=== PATIENT | male | born 1960 | race Caucasian/White ===

== ENCOUNTER → 2017-04-28 | Outpatient (CLI) | payer BC ==
--- NOTE | 2017-04-29 09:26 | PN ---
DATE OF SERVICE: 04/28/2017 A 56-year-old gentleman who [facility] of obstructive sleep apnea-hypopnea syndrome. Last titration done in 2012. At that time, recommended CPAP pressure was 9 cm of water. Previously I saw patient one year ago. He continued to use his machine every night without significant problem related to the machine. Sometimes he has discomfort with his nasal mask. At the same time, patient continued to have quite significant sleepiness during the day. [place] sleepiness sale is 16. He may take several naps during the day. Sometimes he is seeing dreams during the naps and sometimes he is seeing vivid dreams at night. I checked his CPAP unit. It showed usage of the machine with average amount of usage is 22 out of 30 nights for more than 4 hours which is acceptable compliance. No significant leak. Apnea-hypopnea index only 0.9 for the last month. MEDICATIONS: Flonase, Ziac, lisinopril, Niacin. During physical exam, patient in no distress. BP 112/67, HR 62, RR 16, height 6,0, weight 240, BMI 32.5, neck 16-3/4 inches in circumference, temperature 97.7, oxygen saturation at room air 95%. OROPHARYNX: Very small oropharyngeal air space. ABDOMEN: Slightly obese. NECK: Supple, No JVD. Thyroid is not palpable. LUNGS: Clear to percussion and to auscultation. Good air exchange. No wheezing or rhonchi. HEART: S1, s2 regular. No murmurs, gallops or rubs. EXTREMITIES: No clubbing or cyanosis. IMPRESSION: 1. Obstructive sleep apnea-hypopnea syndrome. Patient continues to use CPAP equipment in acceptable range. Normal apnea-hypopnea index by reading from the machine. 2. At the same time, patient continued to have symptoms of excessive daytime sleepiness with vivid dreams during the night and dreams during naps in the daytime. [place] sleepiness scale significantly increased to 16. Differential diagnosis includes additional diagnosis of hypersomnia and narcolepsy. 3. Obesity. 4. Hypertension. 5. Status post nasal surgery. 6. Status post hernia repair. PLAN: 1. Continue treatment with CPAP with the pressure of 9 cm of water every night for the whole night. 2. Multiple sleep latency test for objective evaluation of patient's symptoms of excessive daytime sleepiness. Test should be done after the night with CPAP therapy. 3. Continue losing weight. Patient lost about 30 pounds since titration. 4. No driving if feeling any sleepiness. Thank you very much for allowing me to participate in the management of your patient. Sincerely, David Hannon MD, PhD, FAASM. Diplomat of [employer] [employer], Sleep Medicine Board by [place] [employer] [employer] Compliance Manager of [facility] [place] [facility] SHOREClementine
== END | disposition home or self-care (01) ==
LOC: SLEEP 14:44
PROVIDERS: ATTEND Internal Medicine
DX: G47.33 Obstructive sleep apnea (adult) (pediatric) (principal); E66.9 Obesity, unspecified; I10 Essential (primary) hypertension

== ENCOUNTER 2025-03-28 07:31 | Day surgery (SDC) | payer BC, OTHER ==
[2025-03-27 12:47] VITALS: BMI 32.5
[~2025-03-28 07:31] MED LIST: LIDOCAINE 1% (10MG/ML) FOR IV START INTRADERMA PRN
--- NOTE | 2025-03-28 07:35 | P.GSHP ---
History of Present Illness H&P Date: 03/28/25 CHIEF COMPLAINT: Dysphagia and colon screen HISTORY OF PRESENT ILLNESS: The patient is a 64-year-old male who presents with dysphagia, gastroesophageal reflux disease and need for colon screen. Upper and lower endoscopy were offered for further evaluation and management. PAST MEDICAL HISTORY: Please see list. PAST SURGICAL HISTORY: Please see list. MEDICATIONS: Please see list. ALLERGIES: Please see list. SOCIAL HISTORY: No illicit drug use FAMILY HISTORY: No reports of Crohn disease or ulcerative colitis. REVIEW OF ORGAN SYSTEMS: CONSTITUTIONAL: No reports of fevers or chills. GI: Denies any blood in stools or constipation. PHYSICAL EXAM: VITAL SIGNS: Stable GENERAL: Well-developed pleasant in no acute distress. HEENT: No scleral icterus. Extraocular movements grossly intact. Moist buccal mucosa. NECK: Supple without lymphadenopathy. CHEST: Unlabored respirations. Equal bilateral excursions. CARDIOVASCULAR: Regular rate and rhythm. Distal 2+ pulses. ABDOMEN: Soft, nondistended. MUSCULOSKELETAL: No clubbing, cyanosis, or edema. ASSESSMENT: 1. Dysphagia and gastroesophageal reflux disease 2. Colon screen. PLAN: 1. Recommend proceeding with an upper and lower endoscopy Past Medical History Past Medical History: Diabetes Mellitus, GERD/Reflux, Hypertension, Sleep Apnea/CPAP/BIPAP Additional Past Medical History / Comment(s): "Borderline diabetes"-per pt. . Arthritis. Use CPAP. History of Any Multi-Drug Resistant Organisms: None Reported Past Surgical History: Hernia Repair, Orthopedic Surgery Additional Past Surgical History / Comment(s): Lt shoulder rotator cuff repair. Rt bunionectomy. Fx femer lt- has julio. Colonoscopy Past Anesthesia/Blood Transfusion Reactions: Unable to Obtain, Previous Problems w/ Anesthesia Additional Past Anesthesia/Blood Transfusion Reaction / Comment(s): Per pt, "I was told by family it took a long time to come out of it." Smoking Status: Never smoker - Past Family History Father Family Medical History: No Reported History Medications and Allergies Home Medications Medication Instructions Recorded Confirmed Type Aspirin EC [Ecotrin Low Dose] 81 mg PO DAILY 03/27/25 03/27/25 History Bisoprolol-Hctz 2.5-6.25 mg [Ziac 1 tab PO DAILY 03/27/25 03/27/25 History 2.5-6.25 MG] Fish Oil (Unknown Dose) 1 dose PO QAM 03/27/25 03/27/25 History Tirzepatide [Mounjaro] 5 mg SQ MO 03/27/25 03/27/25 History lisinopriL [Zestril] 5 mg PO DAILY 03/27/25 03/27/25 History Allergies Allergy/AdvReac Type Severity Reaction Status Date / Time sulfamethoxazole Allergy Nausea Verified 03/27/25 12:28 [From Bactrim] trimethoprim [From Bactrim] Allergy Nausea Verified 03/27/25 12:28
[2025-03-28 08:07] VITALS: RESP 16; TEMP 97.4
[2025-03-28] MEDS: IV FLUID CONTINUATION 1,000 ML IV ONE (08:24)
[2025-03-28] MEDS: LACTATED RINGERS 1,000 ML IV SCH (08:25)
[2025-03-28] MEDS: ONDANSETRON 4 MG/2 ML VIAL IVP STA (08:26)
[2025-03-28] MEDS: DEXAMETHASONE SOD PHOSPHATE 4 MG/ML 1 ML VIAL IVP STA (08:26)
[2025-03-28 08:29] LABS: Glucose,Whole Blood 103 mg/dL (70-110)
[2025-03-28] MEDS ORDERED: GLYCOPYRROLATE 0.2 MG/ML 2 ML VIAL ONE (08:29)
[2025-03-28] MEDS ORDERED: LIDOCAINE 1% INJ 10MG/ML (20 ML MDV) ONE (08:29)
[2025-03-28] MEDS: FAMOTIDINE 20 MG/2 ML VIAL IV STA (08:29)
[2025-03-28] MEDS ORDERED: PROPOFOL 10 MG/ML 20 ML VIAL IV ONE (08:29)
--- NOTE | 2025-03-28 09:07 | P.PCN ---
Date of Procedure: 03/28/25 Description of Procedure: PREOPERATIVE DIAGNOSIS: Dysphagia POSTOPERATIVE DIAGNOSIS: Upper esophageal stenosis Gastritis with recent bleed Presbyesophagus Diaphragmatic hiatal hernia Gastroesophageal reflux disease with erosive esophagitis OPERATION: Esophagogastroduodenoscopy with rigid dilator over the guidewire 60 Fr with dilation Esophagogastroduodenoscopy with cold forceps biopsies stomach/antrum, esophagus, duodenum SURGEON: Gail Corey MD ANESTHESIA: MAC. INDICATIONS: The patient is a 64-year-old male who presents with dysphagia. Benefits and risks of the procedure were described. Informed consent was obtained. DESCRIPTION: The patient was brought into the endoscopy suite and laid in the left lateral decubitus position. After a timeout was confirmed, the procedure was initiated. An Olympus gastroscope was passed into the posterior oropharynx where an upper esophageal stenosis was identified. The scope was passed down to the distal esophagus. To address the upper esophageal stenosis, rigid dilator over guidewire was selected. Next using an Uzbek rigid dilator, a guidewire was placed through the gastroscope. Next the scope was withdrawn. A 60-Mongolian rigid Uzbek dilator was passed carefully along the posterior oropharynx to 55 cm and left in place for 2-3 minutes stretch. The dilator was withdrawn including the guidewire. The scope was reentered along the posterior oropharynx with no findings of full- thickness tear of the upper esophageal sphincter. Additional findings below. Within the stomach, acute gastritis with with bleeding was identified along the body of the stomach with cold forceps biopsies obtained. The lower esophageal valve was evaluated with Hill grade 2 lower esophageal valve. LA grade C erosive esophagitis was identified. No full-thickness injury was encountered. The GI tract was desufflated. The patient tolerated the procedure well. FINDINGS: Upper esophageal stenosis dilated 57-Mongolian rigid dilator Diaphragmatic hiatus at 46 cm from the incisors Squamocolumnar junction 44 cm from the incisors. Diaphragmatic hiatal hernia, 2 cm Acute gastritis with bleeding along the gastric body and fundus cold forceps biopsies obtained Acute gastric ulcerations identified. Duodenum with duodenitis. Biopsies obtained LA grade C erosive esophagitis. Biopsies obtained Hill grade 2 lower esophageal valve. Tertiary contractions consistent with presbyesophagus. RECOMMENDATIONS: Omeprazole 40 mg daily Repeat upper endoscopy as needed
--- NOTE | 2025-03-28 09:12 | P.PCN ---
Date of Procedure: 03/28/25 Description of Procedure: PREOPERATIVE DIAGNOSIS: Personal history of colon polyps Colonoscopy screening POSTOPERATIVE DIAGNOSIS: Tubular adenoma ascending colon Sigmoid diverticulosis Internal hemorrhoids, grade 2 OPERATION: Colonoscopy to the ileocecal valve and appendiceal orifice, cecum Colonoscopy with hot snare polypectomy SURGEON: Gail Corey MD. ANESTHESIA: MAC. INDICATIONS: The patient is an 64-year-old male who presents personal history of colon polyps. Last colonoscopy 5 years. Benefits and risks were described and informed consent was obtained. DESCRIPTION OF PROCEDURE: The patient had undergone Suprep. The patient had been brought into the operating room and laid in the left lateral decubitus position. After adequate intravenous sedation, the rectum was examined with 2% lidocaine jelly. The prostate was unremarkable. External hemorrhoids were encountered. The rectal tone was within normal limits. No lesions were palpated in the rectal vault. An Olympus colonoscope was advanced until the cecum, ileocecal valve and appendiceal orifice were clearly viewed. The prep was fair. Sigmoid diverticulosis was encountered. Colonic polyps were found and removed. No evidence of focal colitis was found. Retroflexion of the scope demonstrated grade 2 internal hemorrhoids without active bleeding or inflammation. The colon was desufflated. During procedure, patient had a vasovagal response however recovered. Patient tolerated procedure well. Withdrawal time was over 6 minutes. FINDINGS: Aronchick preparation quality scale 2+ (1-5) Internal hemorrhoids, grade 2 External hemorrhoids, grade 2. No arteriovenous malformations. Sigmoid diverticulosis Removal of 1 polyps: - Snare polypectomy ascending colon, 5 mm tubulovillous adenoma No focal colitis. RECOMMENDATIONS: Repeat colonoscopy 3 years, 2027 Plan - Discharge Summary Discharge Rx Participant: Yes New Discharge Prescriptions: New Omeprazole [PriLOSEC] 40 mg PO DAILY #14 cap Continue lisinopriL [Zestril] 5 mg PO DAILY Bisoprolol-Hctz 2.5-6.25 mg [Ziac 2.5-6.25 MG] 1 tab PO DAILY Aspirin EC [Ecotrin Low Dose] 81 mg PO DAILY Fish Oil (Unknown Dose) 1 dose PO QAM Tirzepatide [Mounjaro] 5 mg SQ MO Discharge Medication List Aspirin EC [Ecotrin Low Dose] 81 mg PO DAILY 03/27/25 [History] Bisoprolol-Hctz 2.5-6.25 mg [Ziac 2.5-6.25 MG] 1 tab PO DAILY 03/27/25 [History] Fish Oil (Unknown Dose) 1 dose PO QAM 03/27/25 [History] Tirzepatide [Mounjaro] 5 mg SQ MO 03/27/25 [History] lisinopriL [Zestril] 5 mg PO DAILY 03/27/25 [History] Omeprazole [PriLOSEC] 40 mg PO DAILY #14 cap 03/28/25 [Rx] Follow up Appointment(s)/Referral(s): Gail Corey MD [STAFF PHYSICIAN] - 04/23/25 2:00 pm Patient Instructions/Handouts: Esophageal Dilation (GEN), Colorectal Polyps (GEN), Diverticulosis (GEN) Activity/Diet/Wound Care/Special Instructions: Salt water gargle twice daily for 3 days. Repeat colonoscopy 3 years, 2027 Discharge Disposition: HOME SELF-CARE
[2025-03-28 09:32] VITALS: BP 119/71; PULSE 73
== END 2025-03-28 09:53 | disposition home or self-care (01) ==
LOC: ORWHC2ENDO 07:31
PROVIDERS: ATTEND Surgery Plastic and Reconstructive Surgery
DX: Z12.11 Encounter for screening for malignant neoplasm of colon (principal); D12.2 Benign neoplasm of ascending colon; K57.30 Diverticulosis of large intestine without perforation or abscess without bleeding; K64.1 Second degree hemorrhoids; K64.4 Residual hemorrhoidal skin tags; K22.2 Esophageal obstruction; K29.01 Acute gastritis with bleeding; K29.80 Duodenitis without bleeding; K21.00 Gastro-esophageal reflux disease with esophagitis, without bleeding; K44.9 Diaphragmatic hernia without obstruction or gangrene; I10 Essential (primary) hypertension; E11.9 Type 2 diabetes mellitus without complications; G47.33 Obstructive sleep apnea (adult) (pediatric); Z79.82 Long term (current) use of aspirin; Z79.85 Long-term (current) use of injectable non-insulin antidiabetic drugs; Z79.899 Other long term (current) drug therapy; Z86.0100 Personal history of colon polyps, unspecified; Z88.2 Allergy status to sulfonamides; Z88.1 Allergy status to other antibiotic agents
CPT/HCPCS: 88305; 45385; 43239; 43248; J1100; J2405; J2003; J2704; J1596; J1308